=== PATIENT | male | born 1990 | race Two or more races ===

== ENCOUNTER 2016-10-15 22:11 | Emergency (ER) | payer BC ==
[2016-10-15 22:40] LABS: PH,URINE 6.5 (5.0-8.0); SPECIFIC GRAVITY 1.015 (1.001-1.030); URINE BILIRUBIN NEGATIVE (NEGATIVE); URINE BLOOD NEGATIVE (NEGATIVE); URINE GLUCOSE (UA) NEGATIVE (NEGATIVE); URINE LEUKOCYTE ESTERASE NEGATIVE (NEGATIVE); URINE NITRITE NEGATIVE (NEGATIVE); URINE PROTEIN NEGATIVE (NEGATIVE); URINE UROBILINOGEN NORMAL (0-1 mg/dl)
[2016-10-15 22:41] LABS: URINE APPEARANCE CLEAR; URINE COLOR YELLOW
[2016-10-16] MEDS ORDERED: HYDROCODONE/ACETAMINOPHEN 5/325MG TABLET ONE (01:11)
[2016-10-16] MEDS ORDERED: CIPROFLOXACIN 500 MG TABLET ONE (01:11)
[2016-10-16] MEDS ORDERED: IBUPROFEN 800 MG TABLET ONE (01:20)
--- NOTE | 2016-10-16 08:19 | US ---
Indications: Right testicular pain and swelling. Comparison: None Findings: Multiple grayscale, color-flow and duplex Doppler images during scrotal ultrasound are obtained. Right testis: 4.1 x 2.7 x 4.2 cm. Normal blood flow. Echogenicity: Multiple calcifications are noted, greater than 5. Epididymis: 0.9 x 1.5 x 1.9 cm. There may be some slight increased vascularity to the right epididymis in comparison to the left. Other: Small hydrocele. A very vascular structures is identified in the right inguinal region measuring 3.0 x 2.0 x 5.3 cm. Findings may relate to hernia or varicocele. Probable scrotal juventino. Left testis: 4.6 x 2.4 x 3.2 cm with blood flow. Echogenicity: Multiple calcifications are scattered throughout. Largest measures 0.2 x 0.2 x 0.2 cm. Greater than 5 punctate calcifications are present. Epididymis: 0.9 x 1.4 x 1.4 cm. Other: Probable epididymal appendix. Impression: Possible increased flow to the right epididymis worrisome for possible epididymitis. Right-sided hernia versus varicocele. Testicular microlithiasis. These patient's may have an increased risk for malignancy, and urologic consultation is warranted. Other incidental findings as above. Preliminary report was provided by [facility] at approximately 0049 hours on 10/16/2016.
[2016-10-17 15:39] LABS: CHLAMYDIA BD Negative (Negative); N.GONORRHOEAE BD Negative (Negative); SOURCE Urine (())
== END 2016-10-16 01:34 | disposition home or self-care (01) ==
LOC: ED 22:11
DX: N45.1 Epididymitis (principal)